=== PATIENT | male | born 1990 | race Caucasian/White ===

== ENCOUNTER → 2020-01-17 08:42 | Outpatient (REF) | payer OTHER, SELFPAY | LOC: ANHLAB 08:42 | PROVIDERS: Visit Provider Nurse Practitioner Family | DX: D49.9 Neoplasm of unspecified behavior of unspecified site (principal) | CPT/HCPCS: 88305 ==

== ENCOUNTER 2022-07-07 06:05 | Observation (INO) | payer OTHER, SELFPAY ==
[2022-07-07] VITALS (16 sets, daily range): BP systolic 105–129; BP diastolic 65–90; PULSE 65–93; RESP 12–20; TEMP 36.2–36.7; O2SAT 96–100
--- NOTE | ~2022-07-07 | XR_ITS ---
EXAMINATION: XR fluoroscopy no charge DATE: 07/08/2022 10:42 INDICATION: Left L4-L5 microdiscectomy TECHNIQUE: Single lateral fluoroscopic image of the lower lumbar spine was obtained during procedure performed by Dr Paula Mcdonald. Radiologist was not present for the imaging or procedure. The amount of f luoroscopy time used during this procedure was 0.1 minutes. COMPARISON: None. FINDINGS: Metallic probe projects over the posterior elements at the level of L4-L5. Visualized bones are rhett l alignment with normal disc heights at L4-L5 and L5-S1. IMPRESSION: 1. Fluoroscopy utilized during reported left L4-L5 microdiscectomy. See procedure note for further de tail. Reviewed, dictated and finalized at location A. IMPRESSION: 1. Fluoroscopy utilized during reported left L4-L5 microdiscectomy. See procedu re note for further detail.
--- NOTE | 2022-07-07 06:26 | ED.BACK ---
HPI - Back Pain/Injury General Chief Complaint: Back Pain/Injury Stated Complaint: back pain Time Seen by Provider: 07/07/22 06:11 History of Present Illness HPI Narrative: Patient is a 32-year-old male who presents ER with low back pain. Patient lifted his 25 pound child out of a crib on 07/03/2022. He had sudden onset low back pain. He also had tingling in his foot and pain radiating down his left leg. The pain was severe to the point that they had a telemetry doc visit through their insurance and then a visit with a orthopedic urgent care. Patient received a Medrol Dosepak. He also received gabapentin. Patient then went in and saw a pain management physician yesterday and received an epidural injection at the L4-L5 disc base. He had already received an MRI that showed significant extrusion of the disc at this area. He is unsure what was in the epidural but knows that there was a numbing medication was to last 8 hours. When that wore off he had significant increase in pain. They have been in touch with her doctor and there is an attempt to contact Dr. Mcdonald neurosurgical office. Have not heard back. Patient continues to have significant pain so they came to the ER and attempt to get more relief. 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 Patient has no saddle anesthesia or inability to sense the need to urinate/defecate. Related Data Home Medications Medication Instructions Recorded Confirmed amoxicillin 875 mg-potassium 1 tablet PO BID 12/18/19 clavulanate 125 mg tablet (Augmentin) Allergies Allergy/AdvReac Type Severity Reaction Status Date / Time sulfamethoxazole Allergy Mild Unknown Verified 07/07/22 06:11 [From Bactrim] trimethoprim [From Bactrim] Allergy Mild Unknown Verified 07/07/22 06:11 Review of Systems Review of Systems: All systems reviewed & are unremarkable except as noted in HPI and below Constitutional: Constitutional: Denies chills and Denies fever(s) Musculoskeletal: Musculoskeletal: Reports back pain, Denies arthralgias, Denies joint swelling and Denies muscle cramps Integumentary/Breasts: Skin/Breast: Denies erythema, Denies rash and Denies skin ulcer Neurologic: Denies focal weakness and Denies numbness Comments: Foot tingling left PMFSH Past Medical History Medical History (Updated 07/07/22 @ 07:19 by Mauricio Stein MD) History of basal cell carcinoma (BCC) Family History Family History Other Skin cancer Social History Social History Smoking status: Never smoker Alcohol intake: current Substance use: never Exam Narrative: GENERAL: Uncomfortable-appearing, well-nourished, and in no acute distress. HEAD: Normocephalic, atraumatic. CHEST: Clear to auscultation. No respiratory distress. HEART: Regular rate and rhythm. Normal peripheral pulses. BACK: Bandage over a epidural injection site at the L4-L5 region. No swelling/redness. No evidence of infection. Tender at L4/5 region. EXTREMITIES: Normal range of motion. No edema. Moves lower extremities well. No sharp touch deficit in bilateral lower extremities. SKIN: Warm, dry, no rash. NEURO: Alert and oriented x3. PSYCH: Normal mood and affect. Course Course Emergency Course: Discussed case with Dr. Mcdonald with neurosurgery. He recommends patient be admitted to medicine service for pain control and he will likely be able to perform a operative repair of the patient's disc tomorrow. No additional Toradol. Patient can take his Medrol Dosepak if he still has it. Vital Signs Vital signs: Vital Signs Temperature 97.6 F 07/07/22 06:12 Pulse Rate 90 07/07/22 06:12 Respiratory Rate 20 07/07/22 06:12 Blood Pressure 122/79 07/07/22 06:12 Pulse Oximetry 100 07/07/22 06:12 Oxygen Delivery Room Air 07/07/22 06:
[2022-07-07] MEDS: KETOROLAC 30 MG/ML VIAL (*BKC) IV PUSH (06:31)
[2022-07-07] MEDS: MORPHINE SULFATE (*CRX) 4 MG/ML INJ IV PUSH ×5 (06:31→16:41)
[2022-07-07 06:35] LABS: Basophils Percent Auto 0.1 % (0.2-1.2); Hematocrit 46.8 % (42.0-52.0); Hemoglobin 15.2 g/dL (14.0-18.0); Immature Granulocyte Absolute 0.07 K/mm3 (0.00-0.031); Immature Granulocyte Percent A 0.5 % (0-0.5); Lymphocytes Absolute Auto 1.57 K/mm3 (0.9-3.2); Lymphocytes Percent Auto 11.1 % (18.3-44.2); Mean Corpuscular HGB Conc 32.5 g/dl (32-36); Mean Corpuscular Hemoglobin 26.9 pg (26-34); Mean Corpuscular Volume 82.8 fl (80-100); Mean Platelet Volume 9.1 fl (7.4-10.4); Monocytes Absolute Auto 0.7 K/mm3 (0.1-0.6); Monocytes Percent Auto 4.7 % (2.6-8.5); Neutrophils Absolute Auto 11.8 K/mm3 (1.3-6.7); Neutrophils Percent Auto 83.6 % (45.5-73.1); Platelet Count Result 361 k/mm3 (150-375); Red Blood Count 5.65 M/mm3 (4.6-6.20); Red Cell Distribution Width 13.2 % (11.5-14.5); White Blood Count 14.1 K/mm3 (4.5-10.0)
[2022-07-07 06:46] LABS: INR 1.1; Prothrombin Time 13.4 Seconds (11.1-14.7)
[2022-07-07 06:47] LABS: Partial Thromboplastin Time 25.8 SECONDS (22.3-36.8)
[2022-07-07 06:52] LABS: Anion Gap 14 mmol/L (8-16); Blood Urea Nitrogen 31 mg/dL (9-20); Calcium 10.6 mg/dL (8.4-10.2); Carbon Dioxide 24 mmol/L (22-30); Chloride 99 mmol/L (98-107); Estimated CRCL calculation 107 ml/min; Estimated Glomerular Filt Rate > 60; Glucose 129 mg/dL (65-110); Potassium 4.5 mmol/L (3.4-5.0); Sodium 137 mmol/L (137-145)
[2022-07-07] MEDS: SODIUM CHLORIDE 0.9% IV 1,000 ML 999 ML IV CONT (06:57)
[2022-07-07] MEDS: ONDANSETRON INJ 4 MG/2 ML VIAL IV PUSH (07:29)
[2022-07-07] MEDS: HYDROcodone/acetaminophen (*CRX) 5-325 MG TABLET 1 TAB PO ×2 (07:29→12:06)
[2022-07-07 08:40] LABS: SARS-CoV-2 RNA PCR Negative
--- NOTE | 2022-07-07 08:46 | PM.IMHP ---
H&P: HPI History of Present Illness Date/Time: 07/07/22 08:46 Chief Complaint: Severe back pain Narrative: 32-year-old male with no significant past medical history is presenting with acute on chronic severe back pain. Patient states he has had back pain for the last 6-7 months. It radiates down into his left lower extremity. He has received steroids, gabapentin, physical therapy, epidural injections and more. He also admits to having some a altered sensation with urination. He states he can tell when he has to urinate, but he cannot tell when he is finished urinating. No chest pain or shortness of breath. No nausea, vomiting or diarrhea. No fevers or chills. In the ER, the patient was given Toradol which gave him some relief. However, Neurosurgery requested no additional doses of Toradol. Patient was switched to morphine 4 mg which helped a little bit, but did not take all of his pain away. Review of Systems Review of Systems: 12 point review of systems was assessed and was negative except as noted in the HPI [facility] Past Medical History Medical History History of basal cell carcinoma (BCC) Family History Family History Other Skin cancer Social History Social History Smoking status: Never smoker Alcohol intake: current Substance use: never Meds Home Medications and Allergies Home Medications Medication Instructions Recorded Confirmed Type amoxicillin 875 mg-potassium 1 tablet PO BID 12/18/19 History clavulanate 125 mg tablet (Augmentin) Allergies Allergy/AdvReac Type Severity Reaction Status Date / Time sulfamethoxazole Allergy Mild Unknown Verified 07/07/22 06:11 [From Bactrim] trimethoprim [From Bactrim] Allergy Mild Unknown Verified 07/07/22 06:11 Vital Signs Vital Signs - 24 hr 07/07/22 06:12 07/07/22 06:19 07/07/22 06:32 Temperature 97.6 F Pulse Rate 90 Respiratory Rate 20 Blood Pressure 122/79 Pulse Oximetry 100 100 99 Oxygen Delivery Room Air 07/07/22 06:33 07/07/22 06:45 07/07/22 06:46 Temperature Pulse Rate 93 Respiratory Rate 20 Blood Pressure 129/90 127/85 Pulse Oximetry 99 96 96 Oxygen Delivery 07/07/22 07:00 07/07/22 07:01 07/07/22 07:15 Temperature 98.0 F Pulse Rate 88 Respiratory Rate 12 Blood Pressure 128/78 Pulse Oximetry 97 97 98 Oxygen Delivery 07/07/22 07:16 07/07/22 07:30 07/07/22 07:31 Temperature Pulse Rate 65 Respiratory Rate 17 Blood Pressure 124/82 124/87 Pulse Oximetry 98 98 98 Oxygen Delivery Exam Narrative: General: No acute distress, alert and oriented per baseline HEENT: Atraumatic, normocephalic, mucous membranes moist CV: Regular rate and rhythm, S1, S2 Lungs: Clear to auscultation bilaterally, no rales or crackles noted, no wheezes, good air entry Abdomen: Soft, nontender, nondistended Extremities: Normal to inspection Skin: No rashes noted, no lesions or wounds seen Psych: Euthymic, normal affect Neuro: Cranial nerves 2-12 grossly intact H&P: Results Labs Labs: Short CBC 07/07/22 Range/Units 06:30 WBC 14.1 H (4.5-10.0) K/mm3 Hgb 15.2 (14.0-18.0) g/dL Hct 46.8 (42.0-52.0) % Plt Count 361 (150-375) k/mm3 [facility] 07/07/22 06:30 Sodium 137 Potassium 4.5 Chloride 99 Carbon Dioxide 24 BUN 31 H Creatinine 1.00 Glucose 129 H Calcium 10.6 H Assessment and Plan Assessment and plan (1) Lumbar disc herniation: Code(s): M51.26 - Other intervertebral disc displacement, lumbar region Status: Acute Assessment and Plan: Herniated disc at L4/L5, appreciate neurosurgical consultation, planning to go to the OR tomorrow Plan NPO after midnight, IV fluids DVT prophylaxis with SCDs Full code
--- NOTE | 2022-07-07 09:25 | PC.NURSE ---
This patient, Robbie Mcmahon, was admitted to [facility] Surg Room 331-01. Patient/family oriented to hospital policies and general routines including ID bracelet, bed and alarms, visiting hours, pain management, procedures, bathroom and other care routines, personal items, smoking policy, room service/diet, and visiting hours. Information on how to activate the Rapid Response Team has been discussed. Patient/Family are encouraged to report perceived risks to care and to ask questions if they do not understand what they are told or what they should do. Arrived at [phone]
--- NOTE | 2022-07-07 11:27 | PC.NURSE ---
Informed MD Mcdonald, pt had MRI done at [facility] in [place], to bring up disc with imaging on it.
[2022-07-07] MEDS: SODIUM CHLORIDE 0.9% IV 1,000 ML 125 ML IV CONT ×3 (12:07→23:19)
--- NOTE | 2022-07-07 13:10 | PC.NURSE ---
MD Mcdonald here to talk to pt abouot surgery.
--- NOTE | 2022-07-07 13:28 | WPDCN ---
Assessment and Plan Assessment and plan (1) Lumbar disc herniation: Code(s): M51.26 - Other intervertebral disc displacement, lumbar region Status: Acute Plan Mr. Mcmahon is a 32-year-old gentleman with back and leg pain related to a left L4-5 herniated nucleus pulposus which is sizable. He also has dorsiflexion and EHL weakness and numbness in an L5 distribution. He has undergone considerable nonsurgical management including physical therapy, oral steroids, oral analgesics and muscle relaxants and injected steroids without permanent benefit. He is currently debilitated by the discomfort and has as mentioned weakness in the left foot. I have therefore recommended him a left-sided L4-5 microscopic lumbar diskectomy and described in this operation, its risks, potential benefits, the operative postoperative course in detail and answered all his questions personally. We discussed risks including but not limited to permanent neurologic deficit secondary to nerve root injury, need for reoperation secondary to infection, bleeding, CSF leak, adjacent level disease, recurrence or residual pathology or instability, failure of the procedure to relieve his pain or symptoms, persistent pain, medical complications related to anesthesia or surgery, etc. Indicates understanding and elects to proceed with that operation. HPI Data of Consult Date/Time: 07/07/22 13:28 Requesting Physician: Maranda Soto DO Primary Care Provider: PHYSICIAN NOT ON STAFF Consult Narrative Narrative: Robbie Mcmahon is a 32 year old male who has a 6-7 month history of pain in his back radiating into his left lower extremity to the outside of the ankle and sometimes to the top of the foot. He has had episodes in the past as well that resolved with a simple Medrol Dosepak. He is employed as a physical therapist. He has attempted oral steroids, injected steroids and physical therapy for this problem over the last few months but so far without permanent benefit. He presented to the emergency room this morning with this problem. He had an injection yesterday with Dr. Lott but this unfortunately was not helpful. He is noticing more weakness in his foot and has had difficulty standing or sitting. He cannot walk for any distance. He is not having bowel or bladder incontinence. He has numbness in the same distribution as the discomfort. Review of Systems Review of Systems: Patient denies shortness of breath, cough, fever, chills, nausea, vomiting, weight loss, weight gain, chest pain. He has back and leg pain as above. He has numbness as above. He has weakness as above. He is otherwise negative on 12 systems. [facility] Past Medical History Medical History (Updated 07/07/22 @ 13:33 by Davion Mcdonald MD) History of basal cell carcinoma (BCC) Family History Family History Other Skin cancer Social History Social History Smoking status: Never smoker Alcohol intake: current Substance use: never Meds Home Medications and Allergies Home Medications Medication Instructions Recorded Confirmed Type amoxicillin 875 mg-potassium 1 tablet PO BID 12/18/19 History clavulanate 125 mg tablet (Augmentin) Allergies Allergy/AdvReac Type Severity Reaction Status Date / Time sulfamethoxazole Allergy Mild Unknown Verified 07/07/22 06:11 [From Bactrim] trimethoprim [From Bactrim] Allergy Mild Unknown Verified 07/07/22 06:11 Vital Signs Vital Signs - 24 hr 07/07/22 06:12 07/07/22 06:19 07/07/22 06:32 Temperature 97.6 F Pulse Rate 90 Respiratory Rate 20 Blood Pressure 122/79 Pulse Oximetry 100 100 99 Oxygen Delivery Room Air 07/07/22 06:33 07/07/22 06:45 07/07/22 06:46 Temperature Pulse Rate 93 Respiratory Rate 20 Blood Pressure 129/90 127/85 Pulse Oximetry 99 96 96 Oxyge
[2022-07-07] MEDS: oxyCODONE HCL (*CRX) 5 MG TAB IR PO ×3 (16:08→23:27)
[2022-07-07] MEDS: ACETAMINOPHEN 500 MG TABLET 1000 MG PO ×2 (16:08→23:27)
[2022-07-07] MEDS: LIDOCAINE 5% PATCH 1 PATCH TRANSDERM (16:09)
--- NOTE | 2022-07-07 16:49 | PC.NURSE ---
CALLED MD Harry maciel, , r/t pain issues this shift, stating cramping intermittent pain, inquiring about CLAIM TRAINEE for pain controll, pt requiring morphine 4 mg IV q2hrs. Pt recently stated on scheduled oxycodone 5 mg q4h with 1000mg PO tylenol q8hrs. Awaiting call back from exchange.
--- NOTE | 2022-07-07 17:32 | PC.NURSE ---
CALLED MD Harry maciel, , r/t pain issues this shift, stating cramping intermittent pain, inquiring about FABRIC SOURCER for pain controll, pt requiring morphine 4 mg IV q2hrs. Pt recently stated on scheduled oxycodone 5 mg q4h with 1000mg PO tylenol q8hrs. Awaiting call back from exchange.
--- NOTE | 2022-07-07 17:45 | PC.NURSE ---
MD Mcdonald called back N.O Valium 5 mg iv now, 10 mg IV Decadron now, Valium 5 mg iv push q6hrs prn for muscle spasms.
--- NOTE | 2022-07-07 17:50 | PC.NURSE ---
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
[2022-07-07] MEDS: diazePAM INJ (*CRX) 10 MG/2 ML SYRINGE 5 MG IV PUSH (18:25)
--- NOTE | 2022-07-07 18:52 | PC.NURSE ---
consent signed for surgery tomorrow.
[2022-07-08] VITALS (11 sets, daily range): BP systolic 106–142; BP diastolic 59–90; PULSE 60–75; RESP 12–20; TEMP 35.8–36.4; O2SAT 97–100
[2022-07-08] MEDS: oxyCODONE HCL (*CRX) 5 MG TAB IR PO (04:54)
[2022-07-08] MEDS: LACTATED RINGERS 1,000 ML 30 ML IV CONT ×2 (08:00→10:26)
--- NOTE | 2022-07-08 08:22 | WPDANESEPPF ---
Anes - Initial Pre Proc Eval Procedure: Operation Date: 07/08/22 09:00 Proposed Procedures p Left L4-5 Microdiscectomy - Davion Mcdonald MD Date/Time: 07/08/22 08:22 Surgeon: Maranda Soto DO Pre Op Diagnosis: herinated disc Patient Data Age: 32 Gender: M Height: 1.88 m Weight: 97.7 kg Last Vital Signs Temp 36.4 C 07/08/22 07:55 Pulse 65 07/08/22 07:55 Resp 20 07/08/22 07:55 BP 125/75 07/08/22 07:55 Pulse Ox 100 07/08/22 07:55 O2 Del Method Room Air 07/08/22 07:55 Allergies Allergy/AdvReac Type Severity Reaction Status Date / Time sulfamethoxazole Allergy Mild Unknown Verified 07/07/22 06:11 [From Bactrim] trimethoprim [From Bactrim] Allergy Mild Unknown Verified 07/07/22 06:11 Home Medications Medication Instructions Recorded Confirmed Type No Home Medications 07/07/22 07/07/22 History Laboratory Tests 07/07/22 07:55 SARS-CoV-2 RNA (RT-PCR) Negative Patient hx anesthesia problems: none Family hx anesthesia problems: none Results Review: All pre-operative results and documents have been reviewed as part of the pre-operative evaluation. [facility], [facility] Past Medical History Medical History History of basal cell carcinoma (BCC) Family History Family History Other Skin cancer Social History Social History Smoking status: Never smoker Alcohol intake: current Substance use: never Anes - Eval Final PreProcedure Day of Procedure 07/08/22 08:22 Patient weight: overweight Heart: regular rate and rhythm Lungs: clear to auscultation Airway: Mallampati scale class II Neurological: alert and oriented Last oral intake: >/= 8 hours ASA classification: II Emergent: no Anesthetic plan: proceed Anesthesia type and monitoring: general ETT and standard monitoring Results Review: All pre-operative results and documents have been reviewed as part of the pre-operative evaluation. Informed Consent: The patient's anesthetic plan and its attendant risks and benefits were discussed with the patient/family/POA. Questions were solicited and answers provided to the satisfaction of the patient/family/POA.
--- NOTE | 2022-07-08 08:27 | PM.IMPN ---
Progress Note: A&P Assessment and Plan (1) Lumbar disc herniation: Code(s): M51.26 - Other intervertebral disc displacement, lumbar region Status: Acute Assessment and Plan: Herniated disc at L4/L5, appreciate neurosurgical consultation, in the OR today Update: Seen postoperatively, doing well, anticipate discharge later today or tomorrow Plan DVT prophylaxis with SCDs Full code Subjective Date/time seen: 07/08/22 08:27 Interval history: Seen postoperatively. No overnight events noted. No chest pain or shortness of breath. No nausea, vomiting or diarrhea. No fevers or chills. Resting comfortably, pain controlled with Kamrar. Review of Systems Review of Systems: 12 point review of systems was assessed and was negative except as noted in the HPI Exam Narrative: General: No acute distress, alert and oriented per baseline HEENT: Atraumatic, normocephalic, mucous membranes moist CV: Regular rate and rhythm, S1, S2 Lungs: Clear to auscultation bilaterally, no rales or crackles noted, no wheezes, good air entry Abdomen: Soft, nontender, nondistended Extremities: Normal to inspection Skin: No rashes noted, no lesions or wounds seen Psych: Euthymic, normal affect Objective Data Vital Signs Vital Signs: Vital Signs - 24 hr 07/07/22 08:55 07/07/22 09:53 07/07/22 14:00 Temperature 97.2 F L 97.2 F L Pulse Rate 69 69 71 Respiratory Rate 18 16 16 Blood Pressure 116/67 127/80 105/65 Pulse Oximetry 99 100 100 Oxygen Delivery 07/07/22 22:00 07/08/22 05:17 07/08/22 07:55 Temperature 97.1 F L 97.5 F L 97.6 F Pulse Rate 69 60 65 Respiratory Rate 18 16 20 Blood Pressure 110/66 106/59 L 125/75 Pulse Oximetry 98 100 100 Oxygen Delivery Room Air Intake/Output Intake/Output: Intake & Output 07/05/22 07/06/22 07/07/22 07/08/22 23:59 23:59 23:59 23:59 Intake Total 3860 200 Balance 3860 200 Meds/Results Medications: Active Medications Generic Name Dose Route Start Last Admin Trade Name Freq PRN Reason Stop Dose Admin Acetaminophen 1,000 mg 07/07/22 16:00 07/07/22 23:27 Acetaminophen 500 Mg Tablet PO 1,000 mg Q8H OLVIN Administration Diazepam 5 mg 07/07/22 17:47 Diazepam (*Crx) 5 Mg Tablet PO Q6H PRN Muscle Spasm Fentanyl Citrate 25 mcg 07/08/22 08:22 Fentanyl Citrate Inj (*Crx) 100 Mcg/2 Ml Vial IV PUSH Q2M PRN Pain Sodium Chloride 1,000 mls @ 125 mls/hr 07/07/22 07:15 07/07/22 23:19 Normal Saline Iv IV CONT 125 mls/hr .Q8H OLVIN Administration Lactated Ringer's 1,000 mls @ 30 mls/hr 07/08/22 08:25 Lr - Lactated Ringers Iv IV CONT .Q24H OLVIN Lactated Ringer's 1,000 mls @ 30 mls/hr 07/08/22 08:25 Lr - Lactated Ringers Iv IV CONT .Q24H OLVIN Lidocaine 1 patch 07/07/22 15:30 07/07/22 16:09 Lidocaine 5% Patch TRANSDERM 1 patch DAILY OLVIN Administration Morphine Sulfate 4 mg 07/07/22 07:15 07/07/22 16:41 Morphine Sulfate (*Crx) 4 Mg/Ml Inj IV PUSH 4 mg Q2H PRN Administration Pain Rated 7-10 Ondansetron HCl 4 mg 07/07/22 07:15 07/07/22 07:29 Ondansetron Inj 4 Mg/2 Ml Vial IV PUSH 4 mg Q4H PRN Administration Nausea Ondansetron HCl 4 mg 07/08/22 08:22 Ondansetron Inj 4 Mg/2 Ml Vial IV PUSH ONCE PRN Nausea Oxycodone HCl 5 mg 07/07/22 16:00 07/08/22 04:54 Oxycodone Hcl (*Crx) 5 Mg Tab Ir PO 5 mg Q4H OLVIN Administration Labs Labs: Laboratory Results - last 24 hr 07/07/22 07:55 SARS-CoV-2 RNA (RT-PCR) Negative
--- NOTE | 2022-07-08 09:02 | WPDHPUPDATE1 ---
History and Physical Update Update Date/Time: 07/08/22 09:02 History and Physical has been reviewed, including an updated exam of the patient. There are NO changes in the patient's condition. Risks, benefits, and alternatives have been discussed and questions answered. Patient agrees to proceed with procedure.
[2022-07-08] MEDS: ceFAZolin 2 GM/D5W 50 ML 2 GM/50 ML BAG IVPB (09:16)
[2022-07-08] MEDS: LIDO 1%/EPINEPHRINE 1:100,000 50 ML VIAL 20 ML INFILTRATE (09:58)
--- NOTE | 2022-07-08 10:15 | P.OP_ITS ---
Procedure Note - Detailed Date of Procedure 07/08/22 Pre-op Diagnosis herinated disc Post-op Diagnosis Same Procedure Performed Left L4-5 microscopic lumbar diskectomy Surgeon Davion Mcdonald MD On Awake Counselor manuel Anesthesia General Indications Robbie is a 32-year-old gentleman with a left L5 radiculopathy related to an L4-5 herniated nucleus pulposus who presents for microscopic lumbar diskectomy. Findings Herniated nucleus pulposus Description of Procedure The patient was taken to the operating room in the supine position, was sedated, intubated and placed under general anesthesia in routine fashion. He was then turned to the prone position on a Bernard frame. The area of operation on his back was examined, marked for incision, prepped and draped in routine sterile fashion. Incision was marked over the L4-L5 spinous processes in the midline. This area was injected with 0.5% lidocaine with [id number] epinephrine. Intravenous antibiotics given prior to incision. Incision was made with a 10 blade scalpel down to the lumbodorsal fascia. A subperiosteal dissection of the muscle soft tissue away from the spinous process and lamina was performed with a subperiosteal elevator and Bovie cautery. A verifying x-rays obtained to verify the level of operation. At the L4-5 level a Midas Papi drill was used to perform a hemilaminectomy and medial facetectomy. Under microscopy the yellow ligament was lifted and removed piecemeal using Kerrison punches. The thecal sac was then retracted medially exposing subligamentous disc herniation below. Curved curette was used to exp and a hole in the ligament. An Araceli curette was used to push free large fragments of disc from beneath the ligament. These were removed with a Salazar rongeur. A nerve hook and a dental instrument was used to push free and removed additional pieces of herniated disc. As a result hole in the disc space of pituitary rongeur was used to remove any loose material within the disc space. The wound was then copiously irrigated with bacitracin irrigation all bleeding was stopped with bipolar and Bovie cautery and Gelfoam thrombin powder. The wound was then closed in layered fashion with 2-0 Vicryl interrupted sutures in the lumbodorsal fascia and Karen's layer. 3-0 Vicryl buried interrupted sutures were placed in the dermis and the skin was closed with a running 4-0 Monocryl subcuticular stitch and dressed with Dermabond. The patient was then allowed, from general anesthesia in the operating room and was taken to the recovery room in stable condition. There were no immediate co mplications of this operation. All counts were reported correct in the case. Blood loss was 10 cc. The patient was neurologically at his baseline postoperatively. Estimated Blood Loss 10 IV Fluids 1,000 Complications None Disposition PACU
[2022-07-08] MEDS: KCL 20 MEQ/D5/0.45% SOD CHL 1,000 ML 100 ML IV CONT (12:06)
[2022-07-08] MEDS: HYDROcodone/acetaminophen (*CRX) 5-325 MG TABLET 1 TAB PO (14:10)
--- NOTE | 2022-07-08 16:15 | PM.DS ---
DS: Admitting Diagnosis Discharge Date July 08, 2022 Admitting Diagnosis Herniated disc DS: Discharge Diagnosis Discharge Diagnosis (1) Lumbar disc herniation: Code(s): M51.26 - Other intervertebral disc displacement, lumbar region Status: Acute Assessment and Plan: Herniated disc at L4/L5, appreciate neurosurgical consultation, in the OR today Update: Seen postoperatively, doing well, anticipate discharge later today or tomorrow Plan DVT prophylaxis with SCDs Full code DS: Summary Hospital Course Hospital Course: 32-year-old male with no past medical history presenting with severe back pain. MRI showed herniated disc neurosurgery was consulted. They took patient to the OR for diskectomy. Patient did well postoperatively and was discharged in good condition close outpatient follow-up. Time Spent with Patient Time attestation: Total time spent providing and/or coordinating discharge services: Exam Narrative: General: No acute distress, alert and oriented per baseline HEENT: Atraumatic, normocephalic, mucous membranes moist CV: Regular rate and rhythm, S1, S2 Lungs: Clear to auscultation bilaterally, no rales or crackles noted, no wheezes, good air entry Abdomen: Soft, nontender, nondistended Extremities: Normal to inspection Skin: No rashes noted, no lesions or wounds seen Psych: Euthymic, normal affect Discharge Plan Discharge Attending physician on discharge: Maranda Soto Consulting providers: Davion Mcdonald Discharging Clinician: Maranda Soto Anticipated Discharge Date/Time: 07/08/22 16:15 Patient Disposition: Home, Self-Care Activity: may shower, no driving and other - see discharge instructions Diet: regular Wound Care Instructions: keep dressing dry Discharge Instructions: No twisting, no bending, no squatting, no driving, do not lift over 10lbs. Okay to sit in chair and walk independently as tolerated. Call if you have any questions. Patient Instructions: Antibiotic Form, Lumbar Discectomy (DC) Stand Alone Forms: General Discharge Information Follow-up/Referrals: PHYSICIAN NOT ON STAFF,NONSTAFF [Primary Care Provider] - Davion Mcdonald MD [Physician] - Discharge Medications: New hydrocodone-acetaminophen 5-325 mg tablet 1 - 2 tablet PO Q4H PRN (Reason: pain) Qty: 30 0RF Date of admission: 08/17/22 07:16 Primary Care Provider: PHYSICIAN NOT ON STAFF,NONSTAFF Admitting Provider: Maranda Soto Attending physician on admission: Maranda Soto Condition: Stable
== END 2022-07-08 16:37 | disposition home or self-care (01) ==
LOC: ANHED 07:19 → ANH3MEDSUR 09:03
PROVIDERS: Neurological Surgery; Admitting Provider Student in an Organized Health Care Education/Training Program; Emergency Provider Emergency Medicine; Visit Provider Student in an Organized Health Care Education/Training Program
PROC: (CPT 63005; principal; 2022-07-08 09:00)
DX: M51.16 Intervertebral disc disorders with radiculopathy, lumbar region (principal); R20.2 Paresthesia of skin; Z20.822 Contact with and (suspected) exposure to COVID-19; R39.198 Other difficulties with micturition; Z79.899 Other long term (current) drug therapy
CPT/HCPCS: 63030; 36415; 80048; 85025; 85610; 85730; 96361; 96365; 96374; 96375; 96376; 99199; 99285; A9270; C9803; G0378; J0690; J1100; J1170; J1885; J2250; J2270; J2405; J2704; J3010; J3360; J3480; J7030; J7120; U0003; U0005